=== PATIENT | male | born 1960 | race Caucasian/White ===

== ENCOUNTER 2017-02-24 13:34 | Emergency (ER) | payer MEDICAID ==
[2017-02-24 13:42] VITALS: BP 142/86
== END 2017-02-24 17:40 | disposition home or self-care (01) ==
LOC: ED 13:34
DX: J20.9 Acute bronchitis, unspecified (principal); I10 Essential (primary) hypertension; Z79.899 Other long term (current) drug therapy
CPT/HCPCS: J7613; J7644

== ENCOUNTER 2019-09-04 08:54 | Emergency (ER) | payer MEDICAID ==
[~2019-09-04] VITALS: Ht 172.7 cm; Wt 102.1 kg
[2019-09-04 09:06] VITALS: Ht 172.7 cm; Wt 102.1 kg
[2019-09-04 09:53] VITALS: BP 132/77
== END 2019-09-04 09:53 | disposition home or self-care (01) ==
LOC: ED 08:54
DX: I10 Essential (primary) hypertension (principal)